=== PATIENT | male | born 1945 | race Caucasian/White ===

== ENCOUNTER 2022-07-14 12:20 | Emergency (ER) | payer BC, SELFPAY ==
--- NOTE | ~2022-07-14 | XR_ITS ---
EXAMINATION: XR abdomen/kub 1V DATE: 07/14/2022 14:19 INDICATION: Impaction. Abdominal tightness. TECHNIQUE: A supine view of the abdomen on 2 radiographs was obtained. COMPARISON: None. FINDINGS: Moderate to large amount of stool scattered throughout the colon. No dilated gas-filled loops of berry l to suggest obstruction. Lung bases are clear. Severe lower lumbar spondylosis. Bone island at the l eft pubic body. IMPRESSION: 1. Moderate to large amount of colonic stool which could be seen with constipation. No dilated bowel to suggest obstruction. Reviewed, dictated and finalized at location A. IMPRESSION: 1. Moderate to large amount of colonic stool which could be seen with constipat ion. No dilated bowel to suggest obstruction.
[2022-07-14 12:46] VITALS: BP 145/97; PULSE 95; RESP 16; TEMP 36.8; O2SAT 99
[2022-07-14 13:34] VITALS: BP 129/69; PULSE 81; RESP 18; TEMP 36.2; O2SAT 97
--- NOTE | 2022-07-14 16:11 | PC.NURSE ---
No BM after fleets and soap suds enema. MD aware. Full linen change, patient back in bed at this time.
--- NOTE | 2022-07-14 16:49 | ED.GENADULT ---
HPI - General Adult General Chief complaint: Abdominal Pain Stated complaint: rectal pain Time Seen by Provider: 07/14/22 13:37 History of Present Illness HPI narrative: Patient is a 76-year-old male who presents ER with constipation. Ongoing over the last week. Has started taking laxatives. He will occasionally leak water out of his bottom but feels like he needs have bowel movement. He is tried to insert a finger but it hurts too much. No history of colonic mass but unsure when his last colonoscopy was. Denies fevers or chills or sweats. Related Data Home Medications Medication Instructions Recorded Confirmed No Home Medications 07/14/22 07/14/22 Allergies Allergy/AdvReac Type Severity Reaction Status Date / Time No Known Allergies Allergy Verified 07/14/22 13:38 Review of Systems Review of Systems: All systems reviewed & are unremarkable except as noted in HPI and below Constitutional: Constitutional: Denies chills and Denies fever(s) Cardiovascular: Cardiovascular: Denies chest pain, Denies rapid heart rate and Denies radiating jaw, neck or arm pain Respiratory: Respiratory: Denies cough and Denies dyspnea Gastrointestinal: Gastrointestinal: Denies abdominal pain, Reports constipation, Denies nausea and Denies vomiting Comments: Rectal pain PMFSH Past Medical History Medical History (Updated 07/14/22 @ 19:33 by Emerson Conway MD) Hyperlipidemia Surgical History Surgical History (Updated 07/14/22 @ 19:33 by Emerson Conway MD) History of tonsillectomy Social History Social History (Updated 07/14/22 @ 19:33 by Emerson Conway MD) Smoking status: Never smoker Exam Narrative: GENERAL: Well-appearing, well-nourished, and in no acute distress. HEAD: Normocephalic, atraumatic. CHEST: Clear to auscultation. No respiratory distress. HEART: Regular rate and rhythm. Normal peripheral pulses. ABDOMEN: Soft, nontender, nondistended. Patient tender on rectal exam with large stool ball obstructing exit. No external hemorrhoids. No mass palpated. EXTREMITIES: Normal range of motion. No edema. SKIN: Warm, dry, no rash. NEURO: Alert and oriented x3. PSYCH: Normal mood and affect. Course Course Emergency Course: Manual disimpaction of some stool helped resulted in successful passage of large stool ball. Discharge home. Vital Signs Vital signs: Vital Signs Temperature 98.3 F 07/14/22 12:46 Pulse Rate 95 07/14/22 12:46 Respiratory Rate 16 07/14/22 12:46 Blood Pressure 145/97 H 07/14/22 12:46 Pulse Oximetry 99 07/14/22 12:46 Oxygen Delivery Room Air 07/14/22 12:46 Temperature 97 F L 07/14/22 18:58 Pulse Rate 88 07/14/22 18:58 Respiratory Rate 18 07/14/22 18:58 Blood Pressure 142/83 H 07/14/22 18:58 Pulse Oximetry 98 07/14/22 18:58 Oxygen Delivery Room Air 07/14/22 13:34 Medical Decision Making Vital Signs Vital Signs: Vital Signs Temperature 98.3 F 07/14/22 12:46 Pulse Rate 95 07/14/22 12:46 Respiratory Rate 16 07/14/22 12:46 Blood Pressure 145/97 H 07/14/22 12:46 Pulse Oximetry 99 07/14/22 12:46 Oxygen Delivery Room Air 07/14/22 12:46 Temperature 97 F L 07/14/22 18:58 Pulse Rate 88 07/14/22 18:58 Respiratory Rate 18 07/14/22 18:58 Blood Pressure 142/83 H 07/14/22 18:58 Pulse Oximetry 98 07/14/22 18:58 Oxygen Delivery Room Air 07/14/22 13:34 Imaging Data Radiologist's impression: ITS Impressions Abdomen X-Ray 07/14/22 14:23 IMPRESSION: 1. Moderate to large amount of colonic stool which could be seen with constipation. No dilated bowel to suggest obstruction. Discharge Plan Discharge Clinical Impression: Constipation Patient Disposition: Home, Self-Care Condition: Stable Additional Instructions: You may continue taking Colace twice a day or you can start taking MiraLAX 1-2 times a day until you start having regular bowel movements and then y
[2022-07-14] MEDS: MORPHINE SULFATE (*CRX) 4 MG/ML INJ IM (16:55)
--- NOTE | 2022-07-14 17:54 | PC.NURSE ---
Called and left message for patient's , OK with patient, No answer.
--- NOTE | 2022-07-14 18:08 | PC.NURSE ---
Andreia, patient's , called for update. OK to give update per patient.
--- NOTE | 2022-07-14 18:55 | PC.NURSE ---
Went to give additional soap suds enema, Pt had passed stool. Denies any rectal pain at this time. MD aware.
[2022-07-14 18:58] VITALS: BP 142/83; PULSE 88; RESP 18; TEMP 36.1; O2SAT 98
== END 2022-07-14 19:32 | disposition home or self-care (01) ==
PROVIDERS: Emergency Provider Emergency Medicine
DX: K59.00 Constipation, unspecified (principal)
CPT/HCPCS: 74018; 96372; 99283; J2270